=== PATIENT | male | born 1985 | race Caucasian/White ===

== ENCOUNTER 2020-09-13 21:23 | Emergency (ER) | payer MEDICAID, SELFPAY ==
[2020-09-13 21:34] VITALS: BP 141/88; PULSE 75; RESP 18; TEMP 36.4; O2SAT 98; BMI 23.5
--- NOTE | 2020-09-13 21:51 | ECG_ITS ---
Test Reason : CHEST PAIN Blood Pressure : / mmHG Vent. Rate : 066 BPM Atrial Rate : 066 BPM P-R Int : 154 ms QRS Dur : 082 ms QT Int : 378 ms P-R-T Axes : 061 059 038 degrees QTc Int : 396 ms Normal sinus rhythm Normal ECG No previous ECGs available Referred By: Al Frias Electronically Signed By:LIUDMILA CASAS MD
--- NOTE | 2020-09-13 21:53 | ED_ITS ---
HPI - Chest Pain General Chief Complaint: Chest Pain Stated Complaint: Chest Pain Time Seen by Provider: 09/13/20 21:46 Source: patient Mode of arrival: ambulatory Limitations: no limitations History of Present Illness HPI narrative: Patient states of left-sided chest pain that started approximately 3 hours ago. While at work. 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 Was moving heavy box when pain started. Worsening pain with movement and palpation. Denies shortness of breath. Denies recent illness. Denies syncope denies nausea vomiting denies diaphoresis MD complaint: chest pain Onset: during exertion Severity: mild Exacerbating factors: exertion and movement Related Data Allergies Allergy/AdvReac Type Severity Reaction Status Date / Time No Known Allergies Allergy Verified 09/13/20 21:33 Review of Systems Review of Systems: Constitutional : No Weight loss, No Fever, No Chills, No Night Sweats, No Fatigue, No Malaise ENT/Mouth : No Hearing loss, No Ear Pain, No Nasal Congestion, No Sinus Pain, No Hoarseness, No sore throat, No Rhinorrhea, No Swallowing Difficulty Eyes: No Eye Pain, No Swelling, No Redness, No Foreign Body, No Discharge, No Vision Changes Cardiovascular : Positive Chest Pain, No SOB, No Dyspnea on Exertion, No Orthopnea, No Edema, No Palpitations Respiratory : No Cough, No Sputum, No Wheezing, No Smoke Exposure, No Dyspnea Gastrointestinal : No Nausea, No Vomiting, No Diarrhea, No Constipation, No abdominal Pain, No Hematochezia, No Melena Genitourinary : no irregular bleeding, No Dysuria, No Urinary Frequency, No H ematuria, No Urinary Incontinence, No Urgency, No Flank Pain, No Urinary Flow Changes, No Hesitancy Musculoskeletal : No joint pain, No Myalgias, No Joint Swelling Skin : No Skin Lesions, No rash Neuro : No Weakness, No Numbness, No Paresthesias, No Loss of Consciousness, No Dizziness, No Headache Psych : No Anxiety/Panic, No Depression, No SI/HI/AH/VH, No Social Issues, Heme/Lymph: No Bruising, No Bleeding,No Lymphadenopathy Endocrine : No Polyuria, No Polydipsia, No Temperature Intolerance PMFSH Past Medical History Medical History Asthma Sinusitis Family History Family History (Updated 09/13/20 @ 21:55 by Al Frias DO) Other Family history non-contributory Social History Social History (Updated 09/13/20 @ 21:55 by Al Frias DO) Household Members: Family Advance Directives: No Physical Exam Vital Signs: Vital Signs: Last Vital Signs Temp 98.3 F 09/13/20 22:11 Pulse 70 09/13/20 22:11 Resp 18 09/13/20 22:11 BP 132/92 H 09/13/20 22:11 Pulse Ox 98 09/13/20 22:11 Body Mass Index 23.5 Reviewed Pulse ox 90% room air, normal interpreted by me Appearance: Alert. Oriented X3. No acute distress. Eyes: Pupils equal, round and reactive to light. ENT: Pharynx normal. Neck: Normal inspection. Neck supple. No lymph nodes noted. No crepitus CVS: Normal heart rate and rhythm. Pulses normal. Normal S1 and S2 positive tenderness to the left upper chest with palpation Respiratory: No respiratory distress. Breath sounds normal. No Wheezing. No rales Abdomen: Soft and nontender. No rigidity. No distention. good BS x4 Skin: Skin warm and dry. Normal skin color. Normal skin turgor. Extremities: No lower extremity edema. Neurovascular intact to all extremities. No Lacerations. No Rash Neuro: Oriented X 3. No motor deficit. No sensory deficit. Moving all extermities. No slurred speech. Course Course Course Narrative: Differential diagnosis includes pulmonary embolism, acute coronary syndrome, pneumonia MDM - Chest Pain MDM Narrative Medical decision making narrative: 35-year-old male with chief complaint of left-sided chest pain. Troponin negative EKG negative D-dimer negative. At this point I doubt the patient has acute coronary syndrome or PE or pneumonia. Patient with pain on palpation with a diagnosis of costochondritis Lab Data Attestation: I reviewed the patient's lab results. Result diagrams: 09/13/20 22:04 09/13/20 22:04 Labs: Lab Results 09/13/20 09/13/20 09/13/20 Range/Units 22:04 22:04 22:04 WBC 6.4 (4.8-10.8) X10*3/uL RBC 4.85 (4.60-5.80) X10*6/uL Hgb 14.9 (14.0-18.0) g/dl Hct 43.4 (42-52) % MCV 89.5 (80-98) fL MCH 30.7 (27.0-33.0) pg MCHC 34.3 (31.0-36.0) g/dl RDW 11.9 (11.0-16.0) % Plt Count 277 (160-400) X10*3/uL MPV 10.4 (9.4-12.4) fL Immature Gran % (Auto) 0.3 (0.0-0.4) % Neut % (Auto) 56.3 (45-73) % Lymph % (Auto) 33.4 (20-40) % [place] % (Auto) 8.7 (2-11) % Eos % (Auto) 0.8 (0-4) % Baso % (Auto) 0.5 (0-2) % Lymph # (Auto) 2.2 (1.2-4.9) X10*3/uL [place] # (Auto) 0.6 (0.1-1.2) X10*3/uL Eos # (Auto) 0.1 (0.0-0.4) X10*3/uL Baso # (Auto) 0.0 (0.0-0.2) X10*3/uL Abs Immat Gran (auto) 0.02 (0.00-0.03) X10*3/uL Absolute Neuts (auto) 3.6 (2.0-8.3) X10*3/uL Absolute Nucleated RBC 0.000 (0.0-0.012) X10*3/uL Nucleated RBC % (auto) 0.0 (0.0-0.2) /100WBC D-Dimer NG/ML Hold Blue Top SEE NOTE Sodium 137 (135-145) mmol/L Potassium 4.0 (3.3-5.1) mmol/l Chloride 103 (96-108) mmol/L Carbon Dioxide 25 (22-29) mmol/L Anion Gap 13 (12-20) BUN 11 (9-16) mg/dL Creatinine 0.99 (0.5-1.4) mg/dL Estim Creat Clear Calc 98.2 Estimated GFR > 60 Random Glucose 74 (60-115) mg/dL Calcium 9.4 (8.4-10.2) mg/dL Troponin I High Sens (<3.5-35.0) ng/L 09/13/20 09/13/20 Range/Units 22:04 22:05 WBC (4.8-10.8) X10*3/uL RBC (4.60-5.80) X10*6/uL Hgb (14.0-18.0) g/dl Hct (42-52) % MCV (80-98) fL MCH (27.0-33.0) pg MCHC (31.0-36.0) g/dl RDW (11.0-16.0) % Plt Count (160-400) X10*3/uL MPV (9.4-12.4) fL Immature Gran % (Auto) (0.0-0.4) % Neut % (Auto) (45-73) % Lymph % (Auto) (20-40) % [place] % (Auto) (2-11) % Eos % (Auto) (0-4) % Baso % (Auto) (0-2) % Lymph # (Auto) (1.2-4.9) X10*3/uL [place] # (Auto) (0.1-1.2) X10*3/uL Eos # (Auto) (0.0-0.4) X10*3/uL Baso # (Auto) (0.0-0.2) X10*3/uL Abs Immat Gran (auto) (0.00-0.03) X10*3/uL Absolute Neuts (auto) (2.0-8.3) X10*3/uL Absolute Nucleated RBC (0.0-0.012) X10*3/uL Nucleated RBC % (auto) (0.0-0.2) /100WBC D-Dimer < 200 NG/ML Hold Blue Top Sodium (135-145) mmol/L Potassium (3.3-5.1) mmol/l Chloride (96-108) mmol/L Carbon Dioxide (22-29) mmol/L Anion Gap (12-20) BUN (9-16) mg/dL Creatinine (0.5-1.4) mg/dL Estim Creat Clear Calc Estimated GFR Random Glucose (60-115) mg/dL Calcium (8.4-10.2) mg/dL Troponin I High Sens < 3.5 (<3.5-35.0) ng/L ECG Data ECG #1: Attestation: I personally reviewed and interpreted this ECG as follows: Interpretation: 66 beats per minute. Normal sinus rhythm. Normal axis. No ST-T changes. Discharge Plan Discharge Clinical Impression: Costalchondritis Chest pain Qualifiers: Chest pain type: unspecified Qualified Code(s): R07.9 - Chest pain, unspecified Patient Disposition: Home, Self-Care Instructions: Costochondritis (ED) Additional Instructions: Thank you for visiting the emergency department today. If your symptoms worsen or do not resolve completely please return to the emergency department immediately or call 911. if he have any questions please call your primary care physician Referrals: [facility] [Provider Group] - 2 days Print Language: Welsh
[2020-09-13 22:11] VITALS: BP 132/92; PULSE 70; RESP 18; TEMP 36.8; O2SAT 98
[2020-09-13 22:12] LABS: MANUAL DIFF FLAG NO
[2020-09-13 22:15] LABS: Basophils Percent Auto 0.5 % (0-2); Eosinophils Absolute Auto 0.1 X10*3/uL (0.0-0.4); Eosinophils Percent Auto 0.8 % (0-4); Hematocrit 43.4 % (42-52); Hemoglobin 14.9 g/dl (14.0-18.0); Imm Gran Abs Auto 0.02 X10*3/uL (0.00-0.03); Imm Gran Pct Auto 0.3 % (0.0-0.4); Lymphocytes Absolute Auto 2.2 X10*3/uL (1.2-4.9); Lymphocytes Percent Auto 33.4 % (20-40); Mean Corpuscular HGB Conc 34.3 g/dl (31.0-36.0); Mean Corpuscular Hemoglobin 30.7 pg (27.0-33.0); Mean Corpuscular Volume 89.5 fL (80-98); Mean Platelet Volume 10.4 fL (9.4-12.4); Monocytes Absolute Auto 0.6 X10*3/uL (0.1-1.2); Monocytes Percent Auto 8.7 % (2-11); Neutrophils Absolute Auto 3.6 X10*3/uL (2.0-8.3); Neutrophils Percent Auto 56.3 % (45-73); Platelet Count 277 X10*3/uL (160-400); Red Blood Count 4.85 X10*6/uL (4.60-5.80); Red Cell Distribution Width 11.9 % (11.0-16.0); White Blood Count 6.4 X10*3/uL (4.8-10.8)
[2020-09-13 22:26] LABS: D Dimer < 200 NG/ML
--- NOTE | 2020-09-13 22:29 | XR_ITS ---
EXAMINATION: XR CHEST CLINICAL INFORMATION: Chest pain COMPARISON: None TECHNIQUE: 2 views of the chest were obtained. FINDINGS: Cardiac silhouette is normal in size. Lungs are well aerated. There is no lobar consolidation. No pleural effusion or pneumothorax. No acute osseous abnormality. XR/XR chest 2V IMPRESSION: No acute pulmonary pathology.
[2020-09-13 22:35] LABS: Anion Gap 13 (12-20); Blood Urea Nitrogen 11 mg/dL (9-16); Calcium 9.4 mg/dL (8.4-10.2); Carbon Dioxide 25 mmol/L (22-29); Chloride 103 mmol/L (96-108); Creatinine Clr Calc Pharmacy 98.2; Estimated Glomerular Filt Rate > 60; Glucose Random 74 mg/dL (60-115); Sodium 137 mmol/L (135-145)
[2020-09-13 22:41] LABS: Troponin-I High Sensitivity < 3.5 ng/L (<3.5-35.0)
== END 2020-09-13 23:17 | disposition home or self-care (01) ==
PROVIDERS: Emergency Provider Emergency Medicine
DX: M94.0 Chondrocostal junction syndrome [Tietze] (principal); R07.9 Chest pain, unspecified
CPT/HCPCS: 36415; 71046; 80048; 84484; 85025; 85379; 93005; 99283; 99284

== ENCOUNTER 2020-09-20 19:15 | Emergency (ER) | payer MEDICAID, SELFPAY ==
[2020-09-20 19:18] VITALS: BP 139/76; PULSE 93; RESP 18; TEMP 37.3; O2SAT 97; BMI 29.7
--- NOTE | 2020-09-20 19:48 | PC.NURSE ---
PT AMB TO [facility] WITH STEADY GAIT. PT HAS NASAL CONGESTION, RIGHT EAR PAIN SINCE YESTERDAY. STATES BUZZING IN EAR. DENIES FEVER OR COUGH.
--- NOTE | 2020-09-20 20:24 | ED_ITS ---
HPI - Ear Problem General Chief complaint: Ear Problems Stated complaint: SINUS CONGESTION,EAR PAIN Time Seen by Provider: 09/20/20 20:22 Source: patient Mode of arrival: ambulatory History of Present Illness HPI Narrative: 35-year-old male with a past medical history of asthma, sinusitis, presenting to ED complaining of increased sinus pressure, right ear pain, and sore throat since yesterday. Reports ear feels muffled. Denies fever, chills, cough, inability to swallow, drainage from the ear MD Complaint: ear pain Related Data Previous Rx's Medication Instructions Recorded amoxicillin-pot clavulanate 1 tab PO Q12H 7 Days #14 tab 09/20/20 [Augmentin] fluticasone propionate [Flonase 2 spray INTRANASAL DAILY #9.9 ml 09/20/20 Allergy Relief] Allergies Allergy/AdvReac Type Severity Reaction Status Date / Time No Known Allergies Allergy Verified 09/20/20 19:18 Review of Systems Review of Systems: Constitutional: No Weight loss, No Fever, No Chills ENT/Mouth: +r Ear Pain, + Nasal Congestion, + Sinus Pain, No Hoarseness, + sore throat, + Rhinorrhea, No Swallowing Difficulty Cardiovascular: No Chest Pain, No SOB Respiratory: No Cough, No Sputum, No Wheezing Gastrointestinal: No Nausea, No Vomiting, No Diarrhea, No Constipation, No Abdominal pain Skin: No Skin Lesions, No rash Yes all other systems are reviewed and are negative [facility] Past Medical History Attestation statement: The following information was validated with the patient. Medical History Asthma Sinusitis Family History Family History (Updated 09/13/20 @ 21:55 by Al Frias DO) Other Family history non-contributory Social History Social History (Updated 09/13/20 @ 21:55 by Al Frias DO) Household Members: Family Smoking Status: Current every day smoker Use of substances other than those prescribed or required for medical reasons: No Advance Directives: No Advance Directives Information Provided: Yes Physical Exam Vital Signs: Vital Signs: Last Vital Signs Temp 99.1 F 09/20/20 19:18 Pulse 93 09/20/20 19:18 Resp 18 09/20/20 19:18 BP 139/76 09/20/20 19:18 Pulse Ox 97 09/20/20 19:18 Body Mass Index 29.7 Const: General: cooperative and healthy appearing O rientation/consciousness: patient oriented x3 Limitations: no limitations HENMT: Other: Right TM partially obstructed by cerumen, however visible superior portion dull Head: Yes normal to inspection Ears: hearing grossly normal bilaterally, TM abnormal and unable to visualize TM on the left General nose exam: Nasal discharge present Face and sinus: No crepitus, No erythema and Yes sinus tenderness (Maxillary and ethmoid) Mouth: Normal oral and palatal mucosa present and moist mucous membranes Throat: Yes posterior oropharynx normal and Yes uvula midline Eyes: General: appearance normal, both eyes and all related structures EOM: EOMs intact bilaterally Neck: Neck: Yes normal visual inspection, Yes no lymphadenopathy and Yes no meningeal signs Resp: Effort & Inspection: normal respiratory effort and no stridor Cardio: Rate: regular rate GI: Inspection: Yes normal to inspection Skin: Rashes: no rashes Wounds: no wounds Neuro: General: patient oriented x3 and no meningeal signs Gait exam (Neuro): Normal gait present Extrem: General: Yes normal to inspection MDM - Ear MDM Narrative Medical decision making narrative: Exam consistent with early otitis media and sinusitis. Will treat with antibiotics due to ear findings Discharge Plan Discharge Clinical Impression: Otitis media Patient Disposition: Home, Self-Care Additional Instructions: You have in an ear infection Augmentin is an antibiotic, take as prescribed Flonase will help drain her sinuses In addition take Claritin or Zyrtec, and Benadryl home Stay hydrated Rest If symptoms persist or worsen, he develops fever, hearing loss, drainage from ear, inability to swallow return to the ED Tiene chase infecci?n de o?do Augmentin es un antibi?flaquito, t?ross seg?n lo prescrito. Flonase ayudar? a drenar joycelyn senos nasales Adem?s, lleve Claritin o Zyrtec y Benadryl a casa. Mantente hidratado [place] Si los s?ntomas persisten o empeoran, presenta fiebre, p?rdida de audici?n, supuraci?n del o?do, incapacidad para tragar y vuelve al servicio de urgencias. Prescriptions: New amoxicillin-pot clavulanate [Augmentin] 875-125 mg tablet 1 tab PO Q12H 7 Days Qty: 14 RF: 0 fluticasone propionate [Flonase Allergy Relief] 50 mcg/actuation spray,suspension 2 spray intranasal DAILY Qty: 9.9 RF: 0 Referrals: Physician,Unknown [Primary Care Provider] - 3 days Stand Alone Forms: Work/School Release Print Language: Citizen Of [place]
== END 2020-09-20 20:40 | disposition home or self-care (01) ==
PROVIDERS: Emergency Provider Emergency Medicine Emergency Medical Services
DX: H66.91 Otitis media, unspecified, right ear (principal); H92.01 Otalgia, right ear; F17.200 Nicotine dependence, unspecified, uncomplicated; Z71.6 Tobacco abuse counseling; Z79.899 Other long term (current) drug therapy
CPT/HCPCS: 99283

== ENCOUNTER 2020-09-27 14:20 | Emergency (ER) | payer MEDICAID, SELFPAY ==
[2020-09-27 14:50] VITALS: BP 149/103; PULSE 67; RESP 16; TEMP 36.6; O2SAT 99; BMI 29.7
--- NOTE | 2020-09-27 15:53 | ED_ITS ---
HPI - General Adult General Chief complaint: General Medical Stated complaint: sinus infection,rt ear pain Time Seen by Provider: 09/27/20 15:42 Source: patient Mode of arrival: ambulatory Limitations: no limitations History of Present Illness HPI narrative: 35-year-old male presenting to the ED with complaints of acute on chronic sinus infection reports he has always had sinusitis in the past. Reports he has also had bilateral ear pain after someone told him to put water in his ears to clean them and since then they have been worse with pain. Reports that he does not want to be tested for COVID as he was not exposed. Denies any recent travel or sick contacts or any other symptoms complaints or concerns at this time. Related Data Previous Rx's Medication Instructions Recorded amoxicillin-pot clavulanate 1 tab PO Q12H 7 Days #14 tab 09/20/20 [Augmentin] fluticasone propionate [Flonase 2 spray INTRANASAL DAILY #9.9 ml 09/20/20 Allergy Relief] amoxicillin-pot clavulanate 1 tab PO BID 10 Days #20 tab 09/27/20 [Augmentin] dexamethasone [Decadron] 6 mg PO DAILY #1 tab 09/27/20 fluticasone propionate [Flonase 1 spray INTRANASAL BID #9.9 ml 09/27/20 Allergy Relief] Allergies Allergy/AdvReac Type Severity Reaction Status Date / Time No Known Allergies Allergy Verified 09/20/20 19:18 Review of Systems Review of Systems: Constitutional : No Fever, No Chills ENT/Mouth : No Hearing loss, + Ear Pain, + Nasal Congestion, + Sinus Pain, No Hoarseness, No sore throat, No Rhinorrhea, No Swallowing Difficulty Cardiovascular : No Chest Pain, No SOB Respiratory : No Cough, No Sputum Skin : No Skin Lesions, No rash Yes all other systems are reviewed and are negative PMFSH Past Medical History Attestation statement: The following information was validated with the patient. Medical History Asthma Sinusitis Family History Family History Other Family history non-contributory Social History Social History Household Members: Family Smoking Status: Current every day smoker Advance Directives: No Advance Directives Information Provided: Yes Physical Exam Vital Signs: Vital Signs: Last Vital Signs Temp 98 F 09/27/20 14:50 Pulse 67 09/27/20 14:50 Resp 16 09/27/20 14:50 BP 149/103 H 09/27/20 14:50 Pulse Ox 99 09/27/20 14:50 Body Mass Index 29.7 vital signs have been reviewed as normal and appeared to be correct. Blood pressure normal. Heart rate normal. Respiration rate normal. Temperature normal. Oxygen saturation normal. Appearance: Alert. Oriented X3. No acute distress. Head: Normal external exam. Normocephalic. Atraumatic. Eyes: PERRLA. EOMI. Conjunctiva and sclera normal. Eyelids normal. ENT: EAC normal. TM's Normal. Pharynx normal. Uvula midline. Moist mucous membranes. No septal hematoma noted. Patient noted to have nasal congestion. Tenderness to palpation of sinuses ethmoid /frontal. No trismus noted. No drooling noted. No muffled voice noted. Neck: Normal inspection. Neck supple. FROM. No adenopathy. No meningeal signs. CVS: Normal heart rate and rhythm. Heart sound normal. No murmurs noted. Pulses normal throughout. Respiratory: No respiratory distress. Painless inspiration. Breath sounds normal. No wheezes/rales/rhonchi noted. Chest nontender. No accessory muscle usage noted or decreased air movement noted. Back: Full range of motion noted. Skin: Skin warm and dry. Normal skin color. Normal skin turgor. No rashes/lesions/lacerations noted. Extremities: Extremities exhibit normal range of motion. Extremities nontender. Neuro: Oriented X 3. No motor deficit. No sensory deficit. Reflexes normal. Medical Decision Making Medical Records Medical records reviewed: Yes I reviewed the patient's medical records. Discharge Plan Discharge Clinical Impression: Sinusitis Patient Disposition: Home, Self-Care Instructions: Sinusitis (ED) Prescriptions: New amoxicillin-pot clavulanate [Augmentin] 875-125 mg tablet 1 tab PO BID 10 Days Qty: 20 RF: 0 fluticasone propionate [Flonase Allergy Relief] 50 mcg/actuation spray,suspension 1 spray intranasal BID Qty: 9.9 RF: 0 dexamethasone [Decadron] 6 mg tablet 6 mg PO DAILY Qty: 1 RF: 0 No Action amoxicillin-pot clavulanate [Augmentin] 875-125 mg tablet 1 tab PO Q12H 7 Days Qty: 14 RF: 0 fluticasone propionate [Flonase Allergy Relief] 50 mcg/actuation spray,suspension 2 spray intranasal DAILY Qty: 9.9 RF: 0 Referrals: Physician,None [Primary Care Provider] - 2 days Stand Alone Forms: Work/School Release Print Language: Armenian
== END 2020-09-27 16:06 | disposition home or self-care (01) ==
PROVIDERS: Emergency Provider Emergency Medicine
DX: J32.9 Chronic sinusitis, unspecified (principal); H92.03 Otalgia, bilateral; J45.909 Unspecified asthma, uncomplicated; F17.200 Nicotine dependence, unspecified, uncomplicated
CPT/HCPCS: 99283